=== PATIENT | male | born 1955 | race Caucasian/White ===

== ENCOUNTER 2016-08-19 06:59 | Day surgery (SDC) | payer OTHER ==
[~2016-08-19] VITALS: Ht 172.7 cm; Wt 123.7 kg
[2016-08-19 07:36] VITALS: Ht 172.7 cm; Wt 123.7 kg
[2016-08-19] MEDS ORDERED: PROPOFOL 40 ML ONE (07:37)
[2016-08-19 07:53] VITALS: BP 150/87; PULSE 75; RESP 18
[2016-08-19 09:35] VITALS: BP 137/89; PULSE 66
--- NOTE | 2016-08-20 00:17 | GILP ---
DATE OF PROCEDURE: PROCEDURE: Esophagogastroduodenoscopy. PREOPERATIVE DIAGNOSIS: Patient presenting with a history of blood in the stools in the form of occ ult gastrointestinal bleeding, rule out peptic ulcer disease, gastritis, esophagitis. POSTOPERATIVE DIAGNOSES: 1. Mild reflux esophagitis. 2. Erosive gastritis of the antrum. 3. Small polyp in the fundus noted. Biopsies were done as follows. DESCRIPTION OF PROCEDURE: After informed written consent was obtained, the patient was asked to lie on the left lateral side. Intravenous anesthesia was given by anesthesiologist, Dr. Oglesby. Whe n the patient became somnolent, the Olympus video upper endoscope was introduced into the oropharynx , then into the esophagus. Esophagus showed evidence of erythema starting from the GE junction in a n irregular fashion for about 1 cm in length, consistent with the [place] classification A of es ophagitis. Biopsies were done. Stomach was examined, which showed evidence of linear erosions in t he antrum and scattered areas of erythema noted as well. Small polyp noted in the gastric fundus. Biopsies were done from the antrum and the lesser curvature and the fundus to rule out H. pylori inf ection. The biopsy of the gastric fundus was also biopsied to rule out any possible neoplastic proc ess. Mucosa of the duodenum from the bulb all the way up to the end of the third portion showed nor mal mucosal pattern with no inflammatory changes or any other neoplastic changes. Scope at this kristan e was withdrawn on the way out, no additional abnormalities detected and the procedure was terminate d. PLAN: Recommend proton pump inhibitor therapy, omeprazole 40 mg a day for 2 months. Dictated By: NELY BUSH/ELVIRA Conf#: [id number] DID#: [id number] CC: Juany Wiggins;*Nathaniel*
--- NOTE | 2016-08-20 03:20 | GILP ---
DATE OF PROCEDURE: 08/19/2016 PROCEDURE: Colonoscopy. PREOPERATIVE DIAGNOSIS: The patient presenting with history of occult gastrointestinal bleeding, ru le out colorectal neoplasm, arteriovenous malformation, etc. POSTOPERATIVE DIAGNOSES: Large polyp measuring at least 3 cm in diameter with a wide stalk located at 25 cm from the anus. Hot snare was used, and this polyp was removed. hemoclipping was performed . Tattooing was performed. DESCRIPTION OF PROCEDURE: After the informed written consent was obtained, the patient was asked to lie on the left lateral side. Intravenous anesthesia was given by anesthesiologist, Dr. Oglesby. When the patient became somnolent, the Olympus video colonoscope was introduced into the rectum, a nd scope was advanced all the way to the cecum. At about 25 cm from the anus, there is evidence of a 3 cm lobulated polyp noted. This polyp was sitting on a large white stalk. Diverticulosis was no marialuisa in the descending colon. Scope at this time was advanced all the way to the cecum. The rest of the colon appeared normal. On the way out, further evaluation was carried out, and by using the ho t snare, the whole polyp was sedated and the polyp was retrieved. At the end of the procedure, two Hemoclips were applied at the stalk to prevent bleeding. By using the SPOT, tattooing was performed adjacent to this polyp location. Retroflexion was performed. No internal hemorrhoids were noted. On the way out, minimal external hemorrhoids were noted which are small and not bleeding. PLAN: Recommend wait for the pathology report. Dictated By: NELY BUSH/ELVIRA Conf#: [id number] DID#: [id number] CC: Ruchi JOHNSTON;*EndCC*
== END 2016-08-19 13:32 | disposition home or self-care (01) ==
LOC: GIL 06:59
PROVIDERS: ATTEND Internal Medicine Gastroenterology
DX: K21.0 Gastro-esophageal reflux disease with esophagitis (principal); D12.5 Benign neoplasm of sigmoid colon; K29.60 Other gastritis without bleeding; K31.7 Polyp of stomach and duodenum; E66.01 Morbid (severe) obesity due to excess calories; Z68.41 Body mass index [BMI] 40.0-44.9, adult
CPT/HCPCS: 45381; 45385; 88305; 88312; 88313; Z7610